=== PATIENT | female | born 1995 | race Caucasian/White ===

== ENCOUNTER 2017-03-23 10:52 | Inpatient (IN) | payer SELFPAY ==
[~2017-03-23] VITALS: Ht 165.1 cm; Wt 93.0 kg
[2017-03-23 11:10] VITALS: BP 132/76
[2017-03-23 11:26] VITALS: BP 132/76
[2017-03-23] MEDS ORDERED: IPRATRPIUM/ALBUTEROL 0.5/2.5MG 3 ML NEBU. NEB SCH (12:00)
[2017-03-23] MEDS ORDERED: ALBUTEROL SULFATE 8GM INHALER. INH SCH (13:00)
[2017-03-23 13:07] LABS: BASO # 0.1 x10^3/uL (0.0-0.2); BASO % 0 % (0-3); EOS # 0.3 x10^3/uL (0.0-0.7); EOS % 2 % (0-3); HEMOGLOBIN 13.8 g/dL (12.0-15.5); LYMPH # 1.6 x10^3/uL (1.0-4.8); LYMPH % 12 % (24-48); MEAN CORPUSCULAR HEMOGLOBIN 31 pg (25-35); MEAN CORPUSCULAR HGB CONC 35 g/dL (31-37); MEAN CORPUSCULAR VOLUME 91 fL (79-100); MONO % 7 % (0-9); NEUT % 78 % (31-73); PLATELET COUNT 305 x10^3/uL (140-400); RED BLOOD COUNT 4.42 x10^6/uL (3.50-5.40); WHITE BLOOD COUNT 12.9 x10^3/uL (4.0-11.0)
[2017-03-23 13:14] LABS: ALBUMIN 3.7 g/dL (3.4-5.0); ALBUMIN/GLOBULIN RATIO 0.8 (1.0-1.7); CALCIUM 9.2 mg/dL (8.5-10.1); CREATININE 0.7 mg/dL (0.6-1.0); GFR 106.7; POTASSIUM 3.7 mmol/L (3.5-5.1); TOTAL BILIRUBIN 0.5 mg/dL (0.2-1.0); TOTAL PROTEIN 8.1 g/dL (6.4-8.2)
[2017-03-23] MEDS ORDERED: IOHEXOL 300 MG/ML 75 ML VIAL. IV ONE (14:00)
[2017-03-23] MEDS ORDERED: methylPREDNISolone SOD SUCC PF 125 MG/2 ML VIAL. IV SCH (14:00)
[2017-03-23] MEDS ORDERED: AZITHROMYCIN 500 MG in IV NORMAL SALINE 250ML 250 ML IV SCH (14:00)
--- NOTE | 2017-03-23 15:09 | RAD ---
CTA of the chest with contrast (pulmonary embolism protocol) 03/23/2017 Clinical History: Elevated d-dimer. Shortness of breath.. Technique: After the intravenous administration of 75 mL of Omnipaque 300, contiguous, 0.625 mm axial sections were obtained through the chest. 3 mm reconstructed axial and 3D MIP coronal and sagittal reconstructed images were obtained. One or more of the following individualized dose reduction techniques were utilized for this study: 1. Automated exposure control. 2. Adjustment of the mA and/or kV according to patient size. 3. Use of iterative reconstruction technique. Findings: No filling defects are seen within the major branches of either pulmonary artery. The heart and thoracic aorta are within normal limits. Prominent right hilar lymph nodes are seen which measure 1 to 1.5 cm in size Areas of groundglass attenuation infiltrates are seen involving both upper lobes, left greater than right. No pneumothorax or pleural effusion is noted. Impression: There is no CT evidence of pulmonary embolism.
[2017-03-23] MEDS: methylPREDNISolone SOD SUCC PF 125 MG/2 ML VIAL. IV SCH ×2 (15:47→21:28)
[2017-03-23] MEDS ORDERED: ALBUTEROL SULFATE 2.5 MG/3 ML NEBU. NEB SCH (16:00)
[2017-03-23 16:21] VITALS: BP 110/70
[2017-03-23] MEDS: IPRATRPIUM/ALBUTEROL 0.5/2.5MG 3 ML NEBU. NEB SCH ×2 (16:46→21:03)
[2017-03-23] MEDS ORDERED: ENOXAPARIN 40 MG/0.4 ML DISP.SYRIN. SQ SCH (17:00)
[2017-03-23] MEDS ORDERED: ALBUTEROL SULFATE 2.5 MG/3 ML NEBU. NEB PRN (17:00)
--- NOTE | 2017-03-23 17:19 | RAD ---
PA and lateral chest radiographs 03/23/2017 Clinical history: Shortness of breath. PA and lateral digital radiographs of the chest were obtained. No previous studies are available for comparison. The cardiac and mediastinal silhouettes are within normal limits in size and configuration. Prominence of the pulmonary vasculature is seen involving both lungs. No area of consolidation is seen. No pneumothorax or pleural effusion is noted. The osseous structures are grossly intact. Impression: 1. Mild peribronchial thickening is seen which could reflect reactive airways disease versus a lower viral respiratory tract infection. 2. No area of consolidation is seen.
[2017-03-23 19:00] VITALS: BP 137/84
[2017-03-23 19:20] LABS: U PREG PATIENT NEGATIVE (NEG)
[2017-03-23 20:37] LABS: BILIRUBIN,URINE NEG (NEG); CLARITY,URINE HAZY; COLOR,URINE YELLOW; GLUCOSE,URINE NEG (NEG); NITRITE,URINE NEG (NEG); UROBILINOGEN,URINE 0.2 mg/dL (0.2 mg/dL)
[2017-03-23 20:39] LABS: BACTERIA,URINE 0 /HPF (0-FEW); RBC,URINE TNTC /HPF (0-2); SQUAMOUS EPITHELIAL CELL,UR MOD /LPF; WBC,URINE OCC /HPF (0-4)
[2017-03-23] MEDS ORDERED: ENOXAPARIN ** NOTE DOSE ** SYRINGE SQ SCH (21:00)
[2017-03-23] MEDS: LACTOBACILLUS RHAMNOSUS GG 1 CAPSULE. PO SCH (21:28)
[2017-03-24 00:19] VITALS: BP_SYST 86
[2017-03-24] MEDS: IPRATRPIUM/ALBUTEROL 0.5/2.5MG 3 ML NEBU. NEB SCH ×4 (05:25→22:10)
[2017-03-24] MEDS: methylPREDNISolone SOD SUCC PF 125 MG/2 ML VIAL. IV SCH (05:35)
[2017-03-24 06:08] VITALS: BP 150/88
[2017-03-24] MEDS: LACTOBACILLUS RHAMNOSUS GG 1 CAPSULE. PO SCH (08:41)
[2017-03-24] MEDS ORDERED: predniSONE 5 MG TABLET PO SCH (09:00)
[2017-03-24] MEDS ORDERED: predniSONE 20 MG TABLET PO SCH (10:30)
[2017-03-24] MEDS: AZITHROMYCIN 250 MG TABLET. PO SCH (10:57)
[2017-03-24] MEDS ORDERED: predniSONE 5 MG TABLET PO ONE (11:00)
[2017-03-24 11:26] VITALS: BP 145/82
[2017-03-24 14:43] VITALS: BP 130/84
[2017-03-24 19:46] VITALS: BP 135/76
[2017-03-25 00:16] VITALS: BP 115/80
[2017-03-25 05:13] VITALS: BP 139/78
[2017-03-25] MEDS: IPRATRPIUM/ALBUTEROL 0.5/2.5MG 3 ML NEBU. NEB SCH ×2 (05:40→09:35)
[2017-03-25] MEDS ORDERED: predniSONE 20 MG TABLET PO SCH (09:00)
[2017-03-25 09:13] LABS: HEMATOCRIT 38.8 % (36.0-47.0); RED BLOOD COUNT 4.24 x10^6/uL (3.50-5.40); RED CELL DISTRIBUTION WIDTH 13.2 % (11.5-14.5); WHITE BLOOD COUNT 15.9 x10^3/uL (4.0-11.0)
[2017-03-25 09:16] LABS: CALCIUM 8.5 mg/dL (8.5-10.1); CREATININE 0.9 mg/dL (0.6-1.0); GFR 79.8; POTASSIUM 3.5 mmol/L (3.5-5.1)
[2017-03-25] MEDS: AZITHROMYCIN 250 MG TABLET. PO SCH (09:33)
[2017-03-25 10:33] VITALS: BP 103/68
[2017-03-25] MEDS ORDERED: PRED20TA PO (11:12)
[2017-03-25] MEDS ORDERED: DOXY100C14 PO (11:12)
[2017-03-25] MEDS ORDERED: BUDE10.2 IH (11:12)
--- NOTE | 2017-03-25 19:01 | DS ---
DATE OF DISCHARGE: 03/25/2017 HOSPITAL COURSE: A 21-year-old female came in with extreme shortness of breath, asthma. The patient's x-rays demonstrated the possibility of a pneumonic process. She has been on antibiotic therapy, some steroids, IV infiltrated, placed on oral medications. She is doing much better. Her last oxygen saturation 95% on room air, pulse still around __ take it easy. She may be contagious. Continue on doxycycline as an outpatient. Otherwise, she will continue with nebulizer treatments, tapering doses of prednisone. Samples given to her from the office. IMPRESSION: Therefore, pneumonia of unspecified etiology, community acquired acute exacerbation of asthma. PLAN: As above, to continue to monitor the patient as an outpatient. Continue with oral antibiotics for at least another 2 weeks and have her follow up in the office for followup as indicated. DAHLIA SIDDIQUI MD DR: NEL/marcelino JOB#: [id number] / [id number]
== END 2017-03-25 11:30 | disposition home or self-care (01) | DRG 194 ==
LOC: ICU 10:52 → 1 SOUTH 15:59
PROVIDERS: ADMIT Family Medicine; ATTEND Family Medicine
DX: J18.9 Pneumonia, unspecified organism (principal); J45.901 Unspecified asthma with (acute) exacerbation; R00.0 Tachycardia, unspecified
CPT/HCPCS: 36415; 71020; 71275; 80048; 80053; 81001; 81025; 83605; 83880; 84702; 85025; 85027; 85379; 87070; 87205; 87641; 94640; 94760; J0456; J0696; J1650; J2930; J7050; J7512; J7620; Q9967